=== PATIENT | male | born 1970 | race Two or more races ===

== ENCOUNTER 2018-12-10 10:22 | Inpatient (IN) | payer SELFPAY ==
[~2018-12-10] VITALS: Ht 180.3 cm; Wt 85.0 kg
[2018-12-10] MEDS ORDERED: SODIUM CHLORIDE 0.9% 1,000 ML IVB ONE (10:40)
[2018-12-10] MEDS ORDERED: MORPHINE SULFATE 4 MG/ML SYR/VIAL IV ONE (10:45)
[2018-12-10] MEDS ORDERED: ONDANSETRON HCL 4 MG/2 ML VIAL IV ONE (10:45)
[2018-12-10] MEDS ORDERED: KETOROLAC TROMETH 15 mg/ml 1ML VL IV ONE (10:45)
[2018-12-10 10:59] LABS: Basophils # (auto) 0.1 uL; Basophils % (auto) 0.8 % (0.0-2.0); Eosinophils # (auto) 0.1 uL; Eosinophils % (auto) 1.6 % (0.0-7.0); Hematocrit 48.9 % (41.0-53.0); Hemoglobin 16.8 g/dL (13.5-17.5); Lymphocytes # (auto) 1.4 uL; Lymphocytes % (auto) 21.5 % (10.0-50.0); Mean Corpuscular Hemoglobin 31.3 pg (28.0-32.0); Mean Corpuscular Hgb Conc. 34.3 g/dL (32.0-36.0); Mean Corpuscular Volume 91.2 fL (80.0-100.0); Monocytes # (auto) 0.5 uL; Monocytes % (auto) 7.8 % (0.0-12.0); Neutrophils # (auto) 4.5 uL; Neutrophils % (auto) 68.3 % (37.0-80.0); Nucleated Red Blood Cells % 0.2 %; Platelet Count (auto) 174 10^3/uL (140-450); Red Blood Cells 5.37 10^6/uL (4.5-5.90); White Blood Cell 6.7 10^3/uL (4.4-10.8)
[2018-12-10 11:12] LABS: Potassium 3.1 mmol/L (3.5-5.1)
[2018-12-10 11:18] LABS: BUN/Creatinine Ratio 7.6; Bilirubin, Total 1.3 mg/dL (0.2-1.0); Calcium 9.3 mg/dL (8.5-10.1); Total Protein 7.4 g/dL (6.4-8.2)
[2018-12-10 11:54] LABS: Lactic Acid w/Reflex 2.2 mmol/L (0.4-2.0)
[2018-12-10] MEDS ORDERED: POTASSIUM CHL 20MEQ/100ML 100 ML IV ONE (12:30)
[2018-12-10] MEDS ORDERED: KETOROLAC TROMETH 15 mg/ml 1ML VL IV PRN (14:15)
[2018-12-10] MEDS ORDERED: TAMSULOSIN HYDROCHLORIDE 0.4 MG CAP PO ONE (14:15)
[2018-12-10] MEDS ORDERED: HYDROcodone-ACET 5/325MG TAB PO PRN (14:15)
[2018-12-10 14:47] LABS: Urine Bacteria NONE SEEN /hpf (None Seen); Urine Blood 2+ /uL (Negative); Urine Hyaline Cast FEW /lpf (0 - 2); Urine Mucus FEW (None Seen); Urine Specific Gravity 1.015 (1.001-1.035); Urine WBC 3 /hpf (0 - 3)
[2018-12-10] MEDS: MORPHINE SULF INJ 2 MG/ML SYRINGE 1ML IV PRN (15:11)
[2018-12-10] MEDS: ONDANSETRON HCL 4 MG/2 ML VIAL IV PRN (15:14)
[2018-12-10] MEDS: SODIUM CHLORIDE 0.9% 1,000 ML IV SCH ×2 (15:16→21:59)
[2018-12-10 17:18] VITALS: BP 128/79
--- NOTE | 2018-12-10 19:30 | NUR ---
PM ASSESSMENT PT AWAKE, ALERT, A/OX4, AFEBRILE. NO C/O PAIN AT THIS TIME. NO SOB OR DISTRESS. POC DISCUSSED, PT STATED UNDERSTANDING. SAFETY PRECAUTIONS IN PLACE. WILL CONTINUE TO MONITOR.
[2018-12-10] MEDS: DOCUSATE SOD 100 MG CAP PO SCH (21:53)
[2018-12-10 22:12] VITALS: BP 118/79
--- NOTE | 2018-12-10 23:30 | NUR ---
PM ASSESSMENT PT AWAKE, ALERT, A/OX4, AFEBRILE. NO C/O PAIN AT THIS TIME. NO SOB OR DISTRESS. SAFETY PRECAUTIONS IN PLACE. WILL CONTINUE TO MONITOR.
--- NOTE | 2018-12-11 03:26 | NUR ---
ROUNDS PT SLEEPING CHEST RISING AND FALLING, NO SOB OR DISTRESS. NO GRIMACING NOTED. PT AROUSABLE BY NAME. SAFETY PRECAUTIONS IN PLACE. WILL CONTINUE TO MONITOR.
[2018-12-11 05:32] VITALS: BP 106/70
[2018-12-11] MEDS: SODIUM CHLORIDE 0.9% 1,000 ML IV SCH ×3 (05:49→22:46)
[2018-12-11] MEDS: ONDANSETRON HCL 4 MG/2 ML VIAL IV PRN (05:50)
[2018-12-11] MEDS: MORPHINE SULF INJ 2 MG/ML SYRINGE 1ML IV PRN (05:50)
[2018-12-11 06:22] LABS: BUN/Creatinine Ratio 7.8; Calcium 7.6 mg/dL (8.5-10.1); Potassium 3.4 mmol/L (3.5-5.1)
[2018-12-11 08:16] VITALS: BP 152/73
[2018-12-11 09:00] VITALS: BP 152/73
[2018-12-11] MEDS: MULTIPLE VITAMIN TAB PO SCH (09:11)
[2018-12-11] MEDS: FAMOTIDINE 20 MG TAB PO SCH (09:11)
[2018-12-11] MEDS: DOCUSATE SOD 100 MG CAP PO SCH ×2 (09:11→21:29)
[2018-12-11] MEDS: THIAMINE HCL 100 MG TAB PO SCH (09:11)
[2018-12-11 13:00] VITALS: BP 142/71
[2018-12-11] MEDS ORDERED: POTASSIUM EFFERVESENT TAB 25 MEQ PO ONE (14:15)
[2018-12-11] MEDS ORDERED: MANNITOL FTV 25% 12.5 GM/50 ML 50 ML IV ONE (16:15)
[2018-12-11 16:47] VITALS: BP 137/88
[2018-12-11] MEDS ORDERED: TAMSULOSIN HYDROCHLORIDE 0.4 MG CAP PO SCH (18:00)
--- NOTE | 2018-12-11 19:35 | NUR ---
assumed care, pt. awake, no c/o pain, no sob.
[2018-12-11 21:32] VITALS: BP 125/78
[2018-12-12 05:15] VITALS: BP 119/89
[2018-12-12 05:43] LABS: BUN/Creatinine Ratio 6.4; Calcium 7.8 mg/dL (8.5-10.1); Potassium 3.8 mmol/L (3.5-5.1)
[2018-12-12 05:49] LABS: Basophils # (auto) 0 uL; Basophils % (auto) 0.7 % (0.0-2.0); Eosinophils # (auto) 0.2 uL; Eosinophils % (auto) 3.8 % (0.0-7.0); Hematocrit 41.2 % (41.0-53.0); Hemoglobin 14.4 g/dL (13.5-17.5); Lymphocytes # (auto) 2.3 uL; Lymphocytes % (auto) 36.5 % (10.0-50.0); Mean Corpuscular Hemoglobin 32.5 pg (28.0-32.0); Mean Corpuscular Volume 92.7 fL (80.0-100.0); Monocytes # (auto) 0.5 uL; Monocytes % (auto) 7.7 % (0.0-12.0); Neutrophils # (auto) 3.2 uL; Neutrophils % (auto) 51.3 % (37.0-80.0); Nucleated Red Blood Cells % 0.1 %; Platelet Count (auto) 150 10^3/uL (140-450); Red Blood Cells 4.45 10^6/uL (4.5-5.90); White Blood Cell 6.2 10^3/uL (4.4-10.8)
[2018-12-12] MEDS: SODIUM CHLORIDE 0.9% 1,000 ML IV SCH ×2 (06:03→14:03)
--- NOTE | 2018-12-12 07:22 | NUR ---
Open Shift Note Received report on patient, awake and ambulating out of bathroom. Patient had urinated, used strainer but no sediment present and states he has not seen a stone come out yet. Patient states having no pain at this time. Discussed POC with patient. Bed in lowest locked position, side rails up x2 and call light within reach. Will continue to monitor.
[2018-12-12 09:00] VITALS: BP 137/39
[2018-12-12] MEDS: DOCUSATE SOD 100 MG CAP PO SCH (09:28)
[2018-12-12] MEDS: FAMOTIDINE 20 MG TAB PO SCH (09:29)
[2018-12-12] MEDS: MULTIPLE VITAMIN TAB PO SCH (09:29)
[2018-12-12] MEDS: THIAMINE HCL 100 MG TAB PO SCH (09:29)
--- NOTE | 2018-12-12 10:15 | NUR ---
Urine Culture Sent Sent urine culture to lab.
[2018-12-12 11:44] VITALS: BP 153/98
[2018-12-12 13:00] VITALS: BP 153/93
--- NOTE | 2018-12-12 14:07 | NUR ---
Discharged Discharge instructions given as ordered. Patient given information to set up PCP as well as information given for [facility]. All questions and concerns addressed. Patient verbalized understanding. Prescriptions taken to [facility] and ready for patient pickup, patient verbalized understanding. IV removed with catheter intact, pressure dressing applied. Patient taken to vehicle via wheelchair with all personal belongings, accompanied by staff. No distress noted at time of departure.
== END 2018-12-12 14:10 | disposition home or self-care (01) | DRG 694 ==
LOC: ER 10:22 → OVERFLOW 10:23 → CENTRAL 16:52
PROVIDERS: ADMIT Nurse Practitioner Acute Care; ATTEND Internal Medicine
DX: N13.2 Hydronephrosis with renal and ureteral calculous obstruction (principal); F17.210 Nicotine dependence, cigarettes, uncomplicated; E87.6 Hypokalemia; N18.9 Chronic kidney disease, unspecified; Z82.3 Family history of stroke
CPT/HCPCS: 36415; 74176; 76700; 80048; 80053; 81001; 83605; 83690; 85025; 87040; 87086; G0378; J2405; J3480